=== PATIENT | male | born 1960 | race Caucasian/White ===

== ENCOUNTER 2021-07-19 20:13 | Inpatient (IN) | payer MEDICARE, OTHER ==
[~2021-07-19] VITALS: Ht 167.6 cm; Wt 93.0 kg
[2021-07-20 03:31] LABS: HEMOGLOBIN 12.4 gm/dl (14.0-17.5); RED BLOOD COUNT 3.4 M/UL (4.20-5.50); WHITE BLOOD COUNT 8.4 K/UL (4.5-11.0)
[2021-07-20 03:54] LABS: BUN/CREATININE RATIO 24 (0-10)
[2021-07-20] MEDS ORDERED: ISOSORBIDE MONO30 MG PO (10:19)
[2021-07-20] MEDS ORDERED: JARDIANCE25 MG PO (10:19)
[2021-07-20] MEDS ORDERED: GABAPENTIN600 MG PO (10:19)
[2021-07-20] MEDS ORDERED: ONDANSETRON ODT4 MG PO (10:20)
[2021-07-20] MEDS ORDERED: METFORMIN HCL500 M2 PO (10:20)
[2021-07-20] MEDS ORDERED: BASAGLAR K100 UNIT/1 SQ (10:20)
[2021-07-20] MEDS ORDERED: ZOCOR40 MG PO (10:20)
[2021-07-20] MEDS ORDERED: ELIQUIS5 MG PO (10:21)
[2021-07-20] MEDS ORDERED: ASPIRIN EC81 MG PO (10:21)
[2021-07-20] MEDS ORDERED: GLIPIZIDE10 MG PO (10:21)
[2021-07-21 02:34] LABS: HEMOGLOBIN 12.4 gm/dl (14.0-17.5); RED BLOOD COUNT 3.37 M/UL (4.20-5.50)
[2021-07-21 02:35] LABS: WHITE BLOOD COUNT 12.7 K/UL (4.5-11.0)
[2021-07-21 02:50] LABS: BUN/CREATININE RATIO 29 (0-10)
[2021-07-22 05:52] LABS: HEMOGLOBIN 12.2 gm/dl (14.0-17.5); RED BLOOD COUNT 3.29 M/UL (4.20-5.50); WHITE BLOOD COUNT 13.2 K/UL (4.5-11.0)
[2021-07-22 06:23] LABS: BUN/CREATININE RATIO 27 (0-10)
[2021-07-23 03:27] LABS: HEMOGLOBIN 11.7 gm/dl (14.0-17.5); RED BLOOD COUNT 3.2 M/UL (4.20-5.50)
[2021-07-23 03:28] LABS: WHITE BLOOD COUNT 7.9 K/UL (4.5-11.0)
[2021-07-23 03:59] LABS: BUN/CREATININE RATIO 26 (0-10)
[2021-07-24 04:02] LABS: HEMOGLOBIN 10.4 gm/dl (14.0-17.5)
[2021-07-24 04:07] LABS: RED BLOOD COUNT 2.81 M/UL (4.20-5.50); WHITE BLOOD COUNT 4.3 K/UL (4.5-11.0)
[2021-07-24 05:09] LABS: BUN/CREATININE RATIO 21 (0-10)
[2021-07-24 14:41] LABS: CRYPTOCOCCUS NEOFORMANS/GATTII Not Detected (Negative); CYTOMEGALOVIRUS Not Detected (Negative); ENTEROVIRUS Not Detected (Negative); ESCHERICHIA COLI K1 Not Detected (Negative); HAEMOPHILUS INFLUENZAE Not Detected (Negative); HERPES SIMPLEX VIRUS 1 Not Detected (Negative); HERPES SIMPLEX VIRUS 2 Not Detected (Negative); HUMAN HERPESVIRUS 6 Not Detected (Negative); HUMAN PARECHOVIRUS Not Detected (Negative); LISTERIA MONOCYTOGENES Not Detected (Negative); NEISERRIA MENINGITIDIS Not Detected (Negative); STREPTOCOCCUS AGALACTIAE Not Detected (Negative); STREPTOCOCCUS PNEUMONIAE Not Detected (Negative); VARICELLA ZOSTER VIRUS Not Detected (Negative)
[2021-07-24 15:00] LABS: GLUCOSE,CSF 137 mg/dL (50-80); TOTAL PROTEIN,CSF 50 mg/dL (20-45)
[2021-07-24 15:11] LABS: WBC (AUTOMATED 6 10^3 (0-5)
[2021-07-25 03:08] LABS: HEMOGLOBIN 10.4 gm/dl (14.0-17.5); RED BLOOD COUNT 2.78 M/UL (4.20-5.50)
[2021-07-25 03:32] LABS: BUN/CREATININE RATIO 27 (0-10)
[2021-07-25 03:33] LABS: WHITE BLOOD COUNT 7.6 K/UL (4.5-11.0)
[2021-07-25 15:14] LABS: HEMATOCRIT 29.9 % (37.5-51.0)
[2021-07-25 16:14] LABS: A/G RATIO 0.6 (0.7-1.7); ALPHA-1-GLOBULIN 0.3 g/dL (0.0-0.4); ALPHA-2-GLOBULIN 0.7 g/dL (0.4-1.0); BETA GLOBULIN 0.5 g/dL (0.7-1.3); GLOBULIN, TOTAL 3.6 g/dL (2.2-3.9); IMMUNOGLOBULIN A, QN, SERUM 284 mg/dL (61-437); IMMUNOGLOBULIN G, QN, SERUM 2005 mg/dL (603-1613); IMMUNOGLOBULIN M, QN, SERUM 89 mg/dL (20-172); M-SPIKE Not Observed g/dL (Not Observed); PROTEIN, TOTAL, SERUM 5.6 g/dL (6.0-8.5)
[2021-07-26 02:07] LABS: HEMOGLOBIN 9.8 gm/dl (14.0-17.5); RED BLOOD COUNT 2.65 M/UL (4.20-5.50); WHITE BLOOD COUNT 8.1 K/UL (4.5-11.0)
[2021-07-26 02:22] LABS: BUN/CREATININE RATIO 25 (0-10)
[2021-07-27 03:31] LABS: HEMOGLOBIN 9.6 gm/dl (14.0-17.5); RED BLOOD COUNT 2.58 M/UL (4.20-5.50); WHITE BLOOD COUNT 7.1 K/UL (4.5-11.0)
[2021-07-27 03:54] LABS: BUN/CREATININE RATIO 30 (0-10)
[2021-07-28 01:15] LABS: RED BLOOD COUNT 2.7 M/UL (4.20-5.50)
[2021-07-28 01:17] LABS: WHITE BLOOD COUNT 10.7 K/UL (4.5-11.0)
[2021-07-28 01:34] LABS: BUN/CREATININE RATIO 35 (0-10)
[2021-07-29 01:59] LABS: HEMOGLOBIN 10.3 gm/dl (14.0-17.5); RED BLOOD COUNT 2.77 M/UL (4.20-5.50)
[2021-07-29 02:00] LABS: WHITE BLOOD COUNT 17.5 K/UL (4.5-11.0)
[2021-07-29 02:19] LABS: BUN/CREATININE RATIO 45 (0-10)
[2021-07-30 05:11] LABS: HEMOGLOBIN 9.6 gm/dl (14.0-17.5); RED BLOOD COUNT 2.58 M/UL (4.20-5.50)
[2021-07-30 05:17] LABS: WHITE BLOOD COUNT 7.9 K/UL (4.5-11.0)
[2021-07-30 05:27] LABS: BUN/CREATININE RATIO 39 (0-10)
--- NOTE | 2021-07-30 08:45 | NUR ---
FENTANYL 25MCG PATCH REPLACED AND WASTED OLD PATCH WITH TANIA MCCLAIN RN.
[2021-07-31 01:58] LABS: HEMOGLOBIN 8.1 gm/dl (14.0-17.5)
[2021-07-31 01:59] LABS: RED BLOOD COUNT 2.19 M/UL (4.20-5.50); WHITE BLOOD COUNT 3.3 K/UL (4.5-11.0)
[2021-07-31 02:44] LABS: BUN/CREATININE RATIO 34 (0-10)
[2021-08-01 03:51] LABS: BUN/CREATININE RATIO 32 (0-10)
[2021-08-01 07:05] LABS: HEMOGLOBIN 5.8 gm/dl (14.0-17.5); RED BLOOD COUNT 1.55 M/UL (4.20-5.50); WHITE BLOOD COUNT 11.1 K/UL (4.5-11.0)
[2021-08-01 16:31] LABS: HEMOGLOBIN 9.7 gm/dl (14.0-17.5)
[2021-08-02 04:42] LABS: HEMOGLOBIN 9.2 gm/dl (14.0-17.5)
[2021-08-02 04:49] LABS: BUN/CREATININE RATIO 39 (0-10)
[2021-08-02 04:59] LABS: RED BLOOD COUNT 2.71 M/UL (4.20-5.50); WHITE BLOOD COUNT 24.9 K/UL (4.5-11.0)
[2021-08-03 03:19] LABS: HEMOGLOBIN 8.9 gm/dl (14.0-17.5); RED BLOOD COUNT 2.55 M/UL (4.20-5.50); WHITE BLOOD COUNT 25.1 K/UL (4.5-11.0)
[2021-08-03 04:07] LABS: BUN/CREATININE RATIO 50 (0-10)
[2021-08-04 05:03] LABS: RED BLOOD COUNT 2.32 M/UL (4.20-5.50); WHITE BLOOD COUNT 23.5 K/UL (4.5-11.0)
[2021-08-04 05:18] LABS: BUN/CREATININE RATIO 39 (0-10)
[2021-08-04 20:31] LABS: BUN/CREATININE RATIO 43 (0-10)
[2021-08-05 04:44] LABS: HEMOGLOBIN 7.4 gm/dl (14.0-17.5); RED BLOOD COUNT 2.14 M/UL (4.20-5.50); WHITE BLOOD COUNT 29.1 K/UL (4.5-11.0)
[2021-08-05 05:05] LABS: BUN/CREATININE RATIO 44 (0-10)
[2021-08-05 10:39] LABS: HEMOGLOBIN 7.5 gm/dl (14.0-17.5); RED BLOOD COUNT 2.18 M/UL (4.20-5.50); WHITE BLOOD COUNT 25.3 K/UL (4.5-11.0)
[2021-08-05 20:45] LABS: HEMOGLOBIN 9.8 gm/dl (14.0-17.5)
[2021-08-06 00:03] LABS: RED BLOOD COUNT 2.96 M/UL (4.20-5.50); WHITE BLOOD COUNT 23.4 K/UL (4.5-11.0)
[2021-08-06 05:08] LABS: HEMOGLOBIN 9.5 gm/dl (14.0-17.5); RED BLOOD COUNT 2.91 M/UL (4.20-5.50); WHITE BLOOD COUNT 23.6 K/UL (4.5-11.0)
[2021-08-06 06:09] LABS: BUN/CREATININE RATIO 49 (0-10)
== END 2021-08-07 08:27 | disposition expired | DRG 853 ==
LOC: ER1 20:13 → CCU 07-20 08:25 → PROG CARE 07-20 08:25 → CDU 07-20 08:25 → PROG CARE 07-20 11:30 → CCU 08-05 12:08
PROVIDERS: Family Medicine; Internal Medicine; Internal Medicine Critical Care Medicine; Physician Assistant Medical; Registered Nurse; ADMIT Internal Medicine
PROC: 3E033XZ Introduction of Vasopressor into Peripheral Vein, Percutaneous Approach (ICD-10-PCS; 2021-07-20)
PROC: 3E04329 Introduction of Other Anti-infective into Central Vein, Percutaneous Approach (ICD-10-PCS; 2021-07-20)
PROC: B24BZZZ Ultrasonography of Heart with Aorta (ICD-10-PCS; 2021-07-21)
PROC: 0QB63ZX Excision of Right Upper Femur, Percutaneous Approach, Diagnostic (ICD-10-PCS; 2021-07-24)
PROC: 009U3ZX Drainage of Spinal Canal, Percutaneous Approach, Diagnostic (ICD-10-PCS; 2021-07-24)
PROC: B01B1ZZ Fluoroscopy of Spinal Cord using Low Osmolar Contrast (ICD-10-PCS; 2021-07-24)
PROC: 0DB58ZX Excision of Esophagus, Via Natural or Artificial Opening Endoscopic, Diagnostic (ICD-10-PCS; 2021-07-26)
PROC: 0QS606Z Reposition Right Upper Femur with Intramedullary Internal Fixation Device, Open Approach (ICD-10-PCS; 2021-07-31)
PROC: 30233N1 Transfusion of Nonautologous Red Blood Cells into Peripheral Vein, Percutaneous Approach (ICD-10-PCS; principal; 2021-08-01)
DX: A41.9 Sepsis, unspecified organism (principal); R65.21 Severe sepsis with septic shock; J18.9 Pneumonia, unspecified organism; J96.01 Acute respiratory failure with hypoxia; N39.0 Urinary tract infection, site not specified; C34.92 Malignant neoplasm of unspecified part of left bronchus or lung; C78.7 Secondary malignant neoplasm of liver and intrahepatic bile duct; C15.9 Malignant neoplasm of esophagus, unspecified; R04.2 Hemoptysis; D62 Acute posthemorrhagic anemia; M84.551A Pathological fracture in neoplastic disease, right femur, initial encounter for fracture; I82.612 Acute embolism and thrombosis of superficial veins of left upper extremity; D61.818 Other pancytopenia; Z66 Do not resuscitate; E78.5 Hyperlipidemia, unspecified; K81.9 Cholecystitis, unspecified; M25.551 Pain in right hip; E11.40 Type 2 diabetes mellitus with diabetic neuropathy, unspecified; D63.1 Anemia in chronic kidney disease; I48.0 Paroxysmal atrial fibrillation; R91.8 Other nonspecific abnormal finding of lung field; E11.51 Type 2 diabetes mellitus with diabetic peripheral angiopathy without gangrene; F17.210 Nicotine dependence, cigarettes, uncomplicated; D75.89 Other specified diseases of blood and blood-forming organs; I25.10 Atherosclerotic heart disease of native coronary artery without angina pectoris; I73.9 Peripheral vascular disease, unspecified; R13.10 Dysphagia, unspecified; Z74.01 Bed confinement status; Z95.1 Presence of aortocoronary bypass graft; Z89.422 Acquired absence of other left toe(s); Z89.421 Acquired absence of other right toe(s); Z98.890 Other specified postprocedural states; Z82.49 Family history of ischemic heart disease and other diseases of the circulatory system; Z83.3 Family history of diabetes mellitus; I25.2 Old myocardial infarction; Z79.82 Long term (current) use of aspirin; Z79.899 Other long term (current) drug therapy; Z79.4 Long term (current) use of insulin; Z88.0 Allergy status to penicillin; L89.152 Pressure ulcer of sacral region, stage 2
CPT/HCPCS: ECHO; 36415; 36430; 36600; 70551; 71045; 71250; 72156; 72157; 72158; 73502; 73700; 73720; 76000; 76705; 77012; 77075; 80048; 80053; 80202; 81001; 82550; 82553; 82607; 82747; 82784; 82803; 82945; 82962; 83540; 83550; 83605; 83615; 83690; 83735; 83880; 83883; 83921; 84100; 84132; 84155; 84157; 84165; 84439; 84443; 84484; 85014; 85018; 85025; 85027; 85610; 85652; 85730; 86140; 86334; 86850; 86900; 86901; 86920; 87040; 87081; 87086; 87205; 87278; 87483; 88341; 88342; 89051; 92610; 93005; 93306; 93971; 94640; 94664; 94760; 96361; 96374; 96375; 96376; 97110-GP-CQ; 97162; 97166; 97530-GP-CQ; 99285; A6212; A9577; C1713; C9113; J0696; J1160; J1335; J1568; J1644; J1650; J1720; J1940; J2001; J2185; J2248; J2270; J2370; J2405; J2550; J2704; J2930; J3370; J3475; J3480; J7030; J7040; J7050; J7070; J7120; P9016; P9045; P9047; Q9967; U0002